=== PATIENT | male | born 1950 | race Caucasian/White ===

== ENCOUNTER 2021-01-24 07:45 | Day surgery (SDC) | payer MEDICARE, OTHER ==
--- NOTE | 2021-01-19 10:28 | NUR ---
phone call to patient discussed medications with pt and what to take the morning of surgery. No water or food after midnight
[~2021-01-24] VITALS: Ht 188 cm; Wt 119.0 kg
[~2021-01-24 07:45] MED LIST: ACTOS15 MG PO; ALDACTONE25 MG PO; CELECOXIB400 MG PO; CHLORTHALIDONE25 MG PO; COZAAR100 MG PO; GLUCOSAMINE-CH480 ML PO; METFORMIN HCL500 M3 PO; MULTI VITAMIN1 EACH PO; OXYBUTYNIN CHLO10 MG PO; SIMVASTATIN40 MG PO; TROSPIUM CHLORI60 MG PO; VERAPAMIL ER240 MG PO; VITAMIN D31000 UNI1 PO
--- NOTE | 2021-01-24 11:53 | NUR ---
01/24/21 1153 Franki Florian OPA IN PL[address] ON ENTRY TO PACU. CBG 116. [employer] AWARE. REPORT RECIEVED.
--- NOTE | 2021-01-24 12:48 | NUR ---
New admit to medical floor. Patient arrived to unit alert and oriented x4. Vital signs are stable, afebrile. Patient reports 1/10 penile tip pain. CBI running, moore patent, light pink urine noted in moore bag. Patient provided with water. Oriented pt to room and call light. No current needs. Personal supplies and call light within reach.
--- NOTE | 2021-01-24 14:20 | NUR ---
Patient reports he is doing well, no distress. Patient provided with a snack. Patient reports pain is tolerable, denies nausea. CBI running, pink urine with no blood clots noted. No current needs. Vital signs stable, sp02 93% on room air.
[2021-01-24] MEDS ORDERED: OXYCODONE HCL5 MG PO (14:57)
[2021-01-24] MEDS ORDERED: KEFLEX750 MG PO (14:58)
--- NOTE | 2021-01-24 15:29 | NUR ---
Patient resting in bed visiting wtih his sister. Patient has no distress. CBI running, moore patent, pink urine without clots noted. Patient reports pain is tolerable. Vital signs are stable. No needs at this time.
--- NOTE | 2021-01-24 18:03 | NUR ---
Patient is in bed with call light in reach.
--- NOTE | 2021-01-24 18:21 | NUR ---
MED REC COMPLETE
--- NOTE | 2021-01-24 19:20 | NUR ---
RECEIVED REPORT FROM DAY SHIFT RN. PATIENT IS RESTIN GIN BED. CBI IS GOING. PATIENT DENIES ANY NEEDS. CALL LIGHT IN REACH.
--- NOTE | 2021-01-24 21:33 | NUR ---
PATIENT ASSESMENT COMPLETED. VITALS TAKEN AND RECORDED. INTAKE AND OUTPUT RECORDED. PATIENT DENIES ANY PAIN. CONDON EMPTIED AND CONDON CARE COMPLETED. BS CHECK. PATIENT REFUSED 1 UNIT SS. PATIENT EDUCATED ON IMPORTANCE OF INSULIN. PATIENT VERBALIZES UNDERSTANDING AND CONTINUES TO REFUSE. SCD IN USE. IV INFUSING PER ORDER. PATIENT DENIES ANY FURTHER NEEDS. CALL LIGHT IN REACH. ICE ATER REFILLED.
--- NOTE | 2021-01-24 22:26 | NUR ---
PATIENT PROVIDED THINGS FOR ORAL CARE AND DID HIMSELF. NO OTHER NEEDS AT THIS TIME.
--- NOTE | 2021-01-24 23:10 | NUR ---
PATIENTS BEDDING CHANGE PATIENT HAD DRAINAGE FROM CATHETER INSERTION SITE. PATIENT DENIES ANY PAIN. PATIENT DENIES ANY NEEDS. CONDON EMPTIED. CALL LIGHT IN REACH.
--- NOTE | 2021-01-25 00:49 | NUR ---
CBI TITRATED TO A SLOW DRIP. PATIENT IS RESTING IN BED. IV INFUSING PER ORDER. PATIENT PROVIDED WITH SNACK. NO FURTHER NEEDS NOTED. CALL LIGHT IN REACH.
--- NOTE | 2021-01-25 02:57 | NUR ---
PATIENT REPOSITIONED IN BED. PATIENTS CBI TITRATED DOWN. PATIENTS VITALS TAKEN AND RECORDED. CONDON EMPTIED. PATIENTS INTAKE AND OUTPUT RECORDED. PATIENT DENIES ANY PAIN. PATIENT DENIES ANY NEEDS. CALL LIGHT IN REACH.
--- NOTE | 2021-01-25 03:50 | NUR ---
PATIENT ASSISTED TO REPOSITION IN BED. PATIENTS CBI CLAMPED. PATIENT DENIES ANY NEEDS. CALL LIGHT IN REACH.
--- NOTE | 2021-01-25 05:50 | NUR ---
PATIENTS VITALS TAKEN AND RECORDED. INTAKE AND OUTPUT RECORDED. PATIENTS CONDON EMPTIED AND CONDON CARE COMPLETED. PATIENT DENIES ANY PAIN. PATIENTS IV INFUSING PER ORDER. PATIENT HAS SCDS IN USE. PATIENT DENIES ANY NEEDS. CALL LIGHT IN REACH. CBI REMAINS CLAMPED.
--- NOTE | 2021-01-25 07:31 | NUR ---
Patient in bed sleeping, eyes closed, respirations even and non labored. Patient has no distress, CBI is clamped, pink urine noted without clots. Personal supplies and call light within reach.
--- NOTE | 2021-01-25 09:05 | EKG ---
[facility] [address] [facility] [place] [address] Signed Sinus rhythm with 1st degree AV block Left ventricular hypertrophy with repolarization abnormality Abnormal ECG When compared with ECG of 06-SEP-2020 14:31, premature ventricular complexes are no longer present Confirmed by DARLENE DILLON MD ([id number]) on 01/25/2021 9:04:50 AM Electronically Signed By: DARLENE DILLON MD 01/25/21 0905 PATIENT NAME: DARIANSERGEHUBER MARCH Electrocardiogram DATE OF : 46 PHYSICIAN: DARLENE DILLON MD REPORT #: [id number] REPORT IS CONFIDENTIAL AND NOT TO BE RELEASED WITHOUT AUTHORIZATION
--- NOTE | 2021-01-25 09:26 | NUR ---
PATIENT SITTING UP IN BED WATCHING TV. VITALS AND I&O'S CHARTED. CALL LIGHT IN REACH. NO FURTHER NEEDS AT THIS TIME.
--- NOTE | 2021-01-25 10:13 | NUR ---
CONDON CBI LINE PLUGGED. RIGHT HAND IV REMOVED WITH CATHETER TIP INTACT. REVIEWED WITH PATIENT PROCEDURE FOR EMPTYING CONDON AND KEEPING BAG LOW FOR GRAVITY DRAINAGE.
--- NOTE | 2021-01-25 10:56 | NUR ---
This RN verified via phone with Dr. Loomis that pt is ok to discharge home.
--- NOTE | 2021-01-25 11:00 | NUR ---
patient discharged home at this time.
--- NOTE | 2021-01-25 11:46 | PATH ---
[facility] [address] [place], [place] [address] Signed SPECIMEN(S): A PROSTATE CHIPS SPECIMEN SOURCE: A. PROSTATE CHIPS CLINICAL HISTORY: BPH with LUTS; OAB; microhematuria. Transurethral resection of prostate. FINAL PATHOLOGIC DIAGNOSIS: Prostate, transurethral resection: - Benign prostatic tissue with glandular and stromal hyperplasia and nonspecific granulomatous prostatitis. BRP:caw:C2NR MICROSCOPIC EXAMINATION: Histologic sections of all submitted blocks are examined by light microscopy. These findings, together with the gross examination, support the pathologic diagnosis. GROSS DESCRIPTION: The specimen, labeled "RC," and designated on the requisition "prostate chips," is received in formalin and consists of pulido-pink, rubbery tissue fragments measuring 8.2 x 7.0 x 1.4 cm in aggregate and weighing 12.5 grams. Diver'S Tender sections are submitted in cassettes (A1-A8). AT (under the direct supervision of a pathologist) The Gross Description was prepared using a voice recognition system. The report was reviewed for accuracy; however, sound-alike word errors, addition and/or deletions may occur. If there is any question about this report, please contact Client Services. PERFORMING LABORATORY: The technical component was performed by [facility], [address] [place] [address] (Leather Craftsman: Kathrine Mirza MD; CLIA# [id number]). [facility], [address] [address] (CLIA# [id number]). Diagnostician: Mike Jade MD Pathologist Electronically Signed 01/25/2021 PATIENT NAME: SERGE FARMER PATHOLOGY DATE OF : 46 REPORT #: [id number] PHYSICIAN: [facility] PCP: TRINY SARKAR MD REPORT IS CONFIDENTIAL AND NOT TO BE RELEASED WITHOUT AUTHORIZATION [address] [address] Signed Copies: ~ PATIENT NAME: SERGE FARMER PATHOLOGY DATE OF : 46 REPORT #: [id number] PHYSICIAN: [facility] PCP: TRINY SARKAR MD REPORT IS CONFIDENTIAL AND NOT TO BE RELEASED WITHOUT AUTHORIZATION
--- NOTE | 2021-01-26 19:01 | OR ---
[facility] [address] [place], [place] [address] Signed DATE OF OPERATION: 01/24/2021 SURGEON: Ashanti Negrete MD PREOPERATIVE DIAGNOSES: 1. Urinary urgency and frequency. 2. Trilobar benign prostatic hyperplasia with lower urinary tract symptoms. POSTOPERATIVE DIAGNOSES: 1. Urinary urgency and frequency. 2. Trilobar benign prostatic hyperplasia with lower urinary tract symptoms. NAME OF PROCEDURE: Transurethral resection of the prostate. ANESTHESIA: General. ESTIMATED BLOOD LOSS: 5 mL. COMPLICATIONS: None. SPECIMENS: Prostate chips sent to the lab for pathologic evaluation. DRAINS: A 22-Liberian 3-way Chery catheter, connected to continuous bladder irrigation. INDICATIONS FOR PROCEDURE: Mr. Muhammad is a very pleasant 70-year-old gentleman, who recently presented to me with fairly significant lower urinary tract symptoms. In particular, he experiences urinary urgency, frequency, and urge incontinence symptoms for which he takes trospium chloride daily. On top of this, he does experience a weak force of stream for which he recently underwent diagnostic cystoscopy, which revealed [id number] trilobar prostatic hyperplasia. In particular, he had a very large median lobe that appeared to be ball valving over the bladder neck during micturition. After discussion of the risks and benefits of the procedure, the patient has elected to undergo transurethral resection of the prostate. Electronically Signed By: ASHANTI NEGRETE MD 01/26/21 190 PATIENT NAME: SERGE MUHAMMAD OPERATIVE REPORT DATE OF : 46 REPORT #: [id number] PHYSICIAN: ASHANTI NEGRETE MD PCP: TRINY SARKAR MD REPORT IS CONFIDENTIAL AND NOT TO BE RELEASED WITHOUT AUTHORIZATION [facility] [address] [place], [place] [address] Signed OPERATIVE FINDINGS: 1. Digital rectal examination reveals a 45 g prostate that is soft, smooth, and symmetric with no focal nodules. 2. Diagnostic cystoscopy reveals no evidence of bladder masses, lesions, or stones. Bilateral ureteral orifices are in their normal anatomic location and effluxing clear urine. Initially, I am barely able to see the ureteral orifices due to the shear size of the patient's median lobe. However, after resection of the median lobe, I am able to easily appreciate both ureteral orifices. 3. Urethroscopy reveals oabvnhnh-xb-nhgwsa trilobar prostatic hyperplasia. The patient has a very large median lobe along with a moderate-size lateral lobe hypertrophy. There is approximately 2 cm from bladder neck to verumontanum. 4. The patient's prostate was resected in a stepwise fashion using a 24-Liberian loop with bipolar electrocautery. The large median lobe was resected first followed by the left and then right lateral lobes of the prostate. The resection was taken down to the level of the verumontanum to avoid any damage to the external sphincter. 5. At the end of procedure, a 22-Liberian 3-way Chery catheter was inserted into the patient's bladder and connected to continuous bladder irrigation. DESCRIPTION OF PROCEDURE: After informed consent was obtained, the patient was taken back to the operating room. [facility] table where general anesthesia was induced. He was placed in the dorsal lithotomy position and his genitalia were prepped and draped in a standard sterile fashion. A digital rectal examination was performed. Please see above findings. The patient's urethral meatus was dilated from 16-Liberian to 30-Liberian using Fillmore sounds without difficulty. I then inserted a 26-Liberian sheath using a visual obturator. Diagnostic cystoscopy was then performed. Please see above findings. The visual obturator was then switched out for the resectoscope and I began my resection of the very large median lobe of the prostate. All the while, I kept a good eye on the bilateral ureteral orifices to be sure there was no iatrogenic damage to them during the resection. Once the middle lobe was taken down, I then turned my attention to both the left and then right lobes of the prostate. As stated above, the resection was taken down to the level of the verumontanum. Once I was satisfied with the amount of prostate chips removed from the patient's prostatic urethra, I switched from a bipolar loop to a bipolar button. I continued resection and cleaned up the tissue using the bipolar button. The button was also used for hemostasis. There was not a significant amount of bleeding during the procedure. Once I was satisfied that hemostasis had been achieved and maintained, the patient's bladder was irrigated using a Ilene syringe multiple times to be sure all the prostate chips had been extracted from the patient's bladder. The resectoscope was removed, leaving the sheath behind. Through the sheath, I passed a 0.035 Sensor wire into the patient's bladder. The sheath was then removed fully intact. Over the sheath, I passed a Electronically Signed By: ASHANTI NEGRETE MD 01/26/21 6044 PATIENT NAME: SERGE MUHAMMAD OPERATIVE REPORT DATE OF : 46 REPORT #: [id number] PHYSICIAN: ASHANTI NEGRETE MD PCP: TRINY SARKAR MD REPORT IS CONFIDENTIAL AND NOT TO BE RELEASED WITHOUT AUTHORIZATION [address] [address] Signed 22-Liberian 3-way Chery catheter into the patient's bladder. The Chery catheter passed easily into the patient's bladder and the Sensor wire was removed. The Chery catheter balloon was then filled with 30 mL of water. The catheter was then manually irrigated to ensure proper positioning. The catheter irrigated without difficulty. The procedure was then terminated once the patient was connected to continuous bladder irrigation. The patient tolerated the procedure well without any complications. He will now be transferred to the postanesthesia care unit in stable condition. DISPOSITION: I discussed the details of today's procedure with the patient's sister Janene and answered all of her questions. He will be admitted to med/surg [facility] under extended observation, so that his continuous bladder irrigation can be slowly weaned off. He will receive pain control and antiemetics as needed along with a diabetic diet. He will receive 1 more dose of IV antibiotics in the morning before he goes home, hopefully with this catheter to gravity drainage. He has been scheduled to return to clinic this January 27 to undergo a voiding trial. MD FINN Chavez/CHERISE /[id number] Copies: ~ Electronically Signed By: ASHANTI NEGRETE MD 01/26/21 1901 PATIENT NAME: SERGE MUHAMMAD OPERATIVE REPORT DATE OF : 46 REPORT #: [id number] PHYSICIAN: ASHANTI NEGRETE MD PCP: TRINY SARKAR MD REPORT IS CONFIDENTIAL AND NOT TO BE RELEASED WITHOUT AUTHORIZATION
== END 2021-01-25 10:55 | disposition home or self-care (01) ==
LOC: DS 07:45 → MS 12:35 → DS 01-25 10:55
PROVIDERS: ATTEND Urology
PROC: 0VT08ZZ Resection of Prostate, Via Natural or Artificial Opening Endoscopic (ICD-10-PCS; principal; 2021-01-24 09:00)
DX: N40.1 Benign prostatic hyperplasia with lower urinary tract symptoms (principal); R39.15 Urgency of urination; R35.0 Frequency of micturition; N39.41 Urge incontinence; E11.9 Type 2 diabetes mellitus without complications; E23.0 Hypopituitarism; I10 Essential (primary) hypertension; E78.5 Hyperlipidemia, unspecified; M19.90 Unspecified osteoarthritis, unspecified site; Z87.891 Personal history of nicotine dependence; Z79.84 Long term (current) use of oral hypoglycemic drugs; Z88.8 Allergy status to other drugs, medicaments and biological substances
CPT/HCPCS: 00914; 93005; 93010; C1769; J0690; J0696; J1100; J1815; J1885; J2250; J2405; J2704; J2765; J3010; J7030; J7121

== ENCOUNTER 2021-06-27 11:44 | Day surgery (SDC) | payer MEDICARE, OTHER ==
[~2021-06-27] VITALS: Ht 188 cm; Wt 119.5 kg
--- NOTE | ~2021-06-27 | OR ---
[facility] [address] [place], [place] [address] Draft DATE OF OPERATION: 06/27/2021 SURGEON: Say Gonzalez MD PREOPERATIVE DIAGNOSIS: History of multiple polyps, last colonoscopy 2015. POSTOPERATIVE DIAGNOSES: 1. Mucosal thickening at hepatic flexure, uncertainty as to adenomatous change or hyperplasia. 2. Internal hemorrhoids. PROCEDURE: Total colonoscopy to cecum with biopsy at hepatic flexure. ANESTHESIA: Intravenous sedation; fentanyl 150 mcg and Versed 6 mg. INDICATION: A 70-year-old white man is a patient Dr. Triny Gleason. He has history of polyps, having undergone colonoscopy last in [address] Honorio Msaon. He has no symptoms currently. He is admitted to undergo colonoscopy. He understands the risks of bleeding, infection, and perforation. FINDINGS: The prep was excellent. Complete colonoscopy was undertaken to the cecum without question. Good visualization of appendiceal orifice was noted. There was an area of mucosal thickening at the hepatic flexure, which was uncertain as to its underlying pathology and on that basis biopsies were obtained. It was not a distinct polyp that I could tell. The remaining colon was normal except on retroflexed view, some internal hemorrhoidal changes were noted. PROCEDURE: The patient was brought to the endoscopy suite and placed in lateral decubitus position, given intravenous sedation to the point of slurred speech and nystagmus. Digital rectal examination was normal. An Olympus video colonoscope was passed in the rectum and manipulated throughout the colon ultimately to the hepatic flexure. Passage beyond here was slightly challenging requiring abdominal wall stabilization, but ultimately the scope was passed beyond this PATIENT NAME: SERGE FARMER OPERATIVE REPORT DATE OF : 46 REPORT #: [id number] PHYSICIAN: SAY GONZALEZ MD PCP: TRINY GLEASON MD REPORT IS CONFIDENTIAL AND NOT TO BE RELEASED WITHOUT AUTHORIZATION [facility] [address] [place], [place] [address] Draft ultimately to the cecum itself. The ileocecal valve and appendiceal orifice were clearly identified as the cecum was completely intubated. Irrigation was undertaken. The scope was carefully withdrawn. At the hepatic flexure, there was an area of mucosal thickening which was of uncertain etiology. Narrow band imaging was no better at discerning it. On that basis, biopsies were obtained. It did not appear to be a typical polyp but may have adenomatous change, it is uncertain. Once biopsies were complete, the scope was carefully withdrawn more fully. Examination showed no other abnormality. Retroflexed view of the rectum showed some internal hemorrhoidal change with no sign of acute bleeding or other problem related to it. The scope was removed and the patient was taken to the recovery room in good condition. CONCLUDING DIAGNOSES: 1. Questionable mucosal abnormality, hepatic flexure (biopsied). 2. Internal hemorrhoids. PLAN: Recommend repeat colonoscopy in 5 years, sooner if symptoms should warrant or the biopsy of the hepatic flexure should show adenomatous change. MD VIRI Moya/CHERISE /[id number] cc: Triny Gleason MD Copies: TRINY GLEASON DMD ~ PATIENT NAME: SERGE FARMER GRETELERNA OPERATIVE REPORT DATE OF : 46 REPORT #: [id number] PHYSICIAN: SAY GONZALEZ MD PCP: TRINY GLEASON MD REPORT IS CONFIDENTIAL AND NOT TO BE RELEASED WITHOUT AUTHORIZATION
[~2021-06-27 11:44] MED LIST changes: +KEFLEX750 MG PO; +OXYCODONE HCL5 MG PO
--- NOTE | 2021-06-27 14:07 | NUR ---
06/27/21 1407 Torie Shook 1400-PT TO PACU IN LL POSITION. EYES CLOSED. RESPONDS TO VERBAL STIMULI. DENIES PAIN AND NAUSEA AND FALLS QUICKLY BACK TO SLEEP. BREATHING EASY AND UNLABORED. SPO2 >95% ON 3L O2 VIA NC. PT ENCOURAGED TO PASS GAS. 1407-PT SLEEPING WITHOUT RN STIMULI. AWAKENS EASILY TO VOICE. PT BREATHING EASY AND UNLABORED. SPO2 >95% ON 3 L O2 VIA SIMPLE MASK. PT PASSING GAS.
--- NOTE | 2021-06-29 11:57 | PATH ---
[facility] [address] [facility] [place] [address] Signed SPECIMEN(S): A HEPATIC FLEXURE BIOPSY POSS POLYP SPECIMEN SOURCE: A. HEPATIC FLEXURE BIOPSY POSS POLYP CLINICAL HISTORY: Colonoscopy. History of colon polyps 2016. Post: Mucosal abnormality hepatic flexure, internal hemorrhoids. FINAL PATHOLOGIC DIAGNOSIS: Colon, hepatic flexure, polyp, polypectomy: - Focal mild active colitis. - Negative for dysplasia or malignancy. COMMENT: Focal cryptitis is seen, but no basal lymphoplasmacystosis, architectural distortion, or granulomas. The differential diagnosis includes bowel preparation, infectious etiologies, or NSAID-induced damage. NAL:cml:C2NR MICROSCOPIC EXAMINATION: Histologic sections of all submitted blocks are examined by light microscopy. These findings, together with the gross examination, support the pathologic diagnosis. GROSS DESCRIPTION: The specimen, labeled "RC, hepatic flexure polyp," is received in formalin and consists of one pulido soft tissue fragment that measures 0.3 cm in greatest dimension. The specimen is entirely submitted in cassette (A1). JS (under the direct supervision of a pathologist) The Gross Description was prepared using a voice recognition system. The report was reviewed for accuracy; however, sound-alike word errors, addition and/or deletions may occur. If there is any question about this report, please contact Client Services. PERFORMING LABORATORY: The technical component was performed by [facility], [address] [place] [id number] (CLIA# [id number]). Professional interpretation was performed by [facility] [place] PATIENT NAME: SERGE FARMER PATHOLOGY DATE OF : 46 REPORT #: [id number] PHYSICIAN: [facility] PCP: TRINY SARKAR MD REPORT IS CONFIDENTIAL AND NOT TO BE RELEASED WITHOUT AUTHORIZATION [facility] [address] [place], [place] [address] [address] (CLIA# [id number]). Diagnostician: Halima Butler MD Pathologist Electronically Signed 06/29/2021 Copies: ~ PATIENT NAME: SERGE FARMER PATHOLOGY DATE OF : 46 REPORT #: [id number] PHYSICIAN: [facility] PCP: TRINY SARKAR MD REPORT IS CONFIDENTIAL AND NOT TO BE RELEASED WITHOUT AUTHORIZATION
== END 2021-06-27 15:00 | disposition home or self-care (01) ==
LOC: DS 11:44 → OPS 11:44 → DS 13:00 → OPS 13:00
PROVIDERS: ATTEND Surgery
PROC: 0DBL8ZX Excision of Transverse Colon, Via Natural or Artificial Opening Endoscopic, Diagnostic (ICD-10-PCS; principal; 2021-06-27 13:00)
DX: Z12.11 Encounter for screening for malignant neoplasm of colon (principal); K52.89 Other specified noninfective gastroenteritis and colitis; K64.8 Other hemorrhoids; N40.1 Benign prostatic hyperplasia with lower urinary tract symptoms; N13.8 Other obstructive and reflux uropathy; E78.5 Hyperlipidemia, unspecified; I10 Essential (primary) hypertension; E66.9 Obesity, unspecified; Z86.16 Personal history of COVID-19; Z90.49 Acquired absence of other specified parts of digestive tract; Z68.34 Body mass index [BMI] 34.0-34.9, adult; Z88.8 Allergy status to other drugs, medicaments and biological substances; Z86.010 Personal history of colon polyps
CPT/HCPCS: 99153; G0500; J2250; J3010; J7121

== ENCOUNTER 2021-11-14 06:47 | Day surgery (SDC) | payer MEDICARE, OTHER ==
[~2021-11-14] VITALS: Ht 188 cm; Wt 108.2 kg
[~2021-11-14 06:47] MED LIST changes: +BIOTIN1000 MCG PO; +GLYCOTROL CAPS1 EACH PO; +OSTERA TABLET1 EACH PO; +VIT C-ROSE HIP500 MG PO
[2021-11-14] MEDS ORDERED: CO Q-1050 MG PO (07:26)
--- NOTE | 2021-11-14 10:35 | NUR ---
11/14/21 1035 Dayna Pollard 1024- PT ARRIVES TO PACU REACTIVE TO VERBAL STIMULI. PT DOES NOT FOLLOW COMMANDS OR ANSWER QUESTIONS. OPENS EYES TO STIMULI. PT INSTANTLY FALLS BACK TO SLEEP WHEN NOT BEING STIMULATED. RESP EVEN AND UNLABORED. OXYGEN SAT HIGH 90'S ON 6L VIA MASK. 1027- CBG 89. GRAINING OPERATOR AWARE. 1034- PT AROUSABLE TO VOICE. PT ABLE TO ANSWER QUESTIONS AND FOLLOW COMMANDS NOW. PT ENCOURAGED TO COUGH AND DEEP BREATHE. PT IS ABLE TO DO THIS. PT UPDATED THAT HIS SURGERY IS OVER.
--- NOTE | 2021-11-14 11:00 | NUR ---
WATER GIVEN. CALL LIGHT WITHIN REACH. PATIENT REPORTS HE WILL CALL FOR HIS RIDE.
--- NOTE | 2021-11-14 12:05 | NUR ---
PATIENT IS UP TO THE BATHROOM, WITH MY STANDBY. HE AMBULATES WELL AND DENIES DIZZINESS. HE REPORTS "THAT HURT, SO I DIDN'T PEE." PATIENT EDUCATED ON NEED TO VOID PRIOR TO DISCHARGE AND HE VERBALIZES UNDERSTANDING. HE IS SITTING ON THE EDGE OF THE BED, DRINKING WATER. CALL LIGHT IS WITHIN REACH.
--- NOTE | 2021-11-15 14:42 | OR ---
[facility] [address], [place] [address] Signed DATE OF OPERATION: 11/14/2021 SURGEON: Ashanti Negrete MD PREOPERATIVE DIAGNOSIS: Overactive bladder. POSTOPERATIVE DIAGNOSIS: Overactive bladder. NAMES OF PROCEDURES: 1. Diagnostic cystoscopy. 2. Intravesical injection of Botox, 100 units. ANESTHESIA: MAC. ESTIMATED BLOOD LOSS: None. COMPLICATIONS: None. SPECIMENS: None. DRAINS: None. INDICATIONS FOR PROCEDURE: Mr. Muhammad is a very pleasant 71-year-old gentleman who has well known overactive bladder. His symptoms have not responded to prior oral medications. He has undergone evaluation and does not have any evidence of active bladder outlet obstruction. After discussion of the risks and benefits of procedure, the patient has elected to undergo cystoscopy with intravesical injection of Botox 100 units. OPERATIVE FINDINGS: 1. On cystoscopy, there was no evidence of any suspicious masses, lesions, or stones. Bilateral ureteral orifices are in their normal anatomic location effluxing clear urine. 2. A total of 100 mL of botulinum toxin was injected into the detrusor muscle within the Electronically Signed By: ASHANTI NEGRETE MD 11/15/21 1442 PATIENT NAME: SERGE MUHAMMAD OPERATIVE REPORT DATE OF : 46 REPORT #: [id number] PHYSICIAN: ASHANTI NEGRETE MD PCP: TRINY SARKAR MD REPORT IS CONFIDENTIAL AND NOT TO BE RELEASED WITHOUT AUTHORIZATION [facility] [address], [place] [address] Signed bladder via 0.5 aliquots with a total of 20 injections. An additional three injections of 0.5 mL of sterile saline was also performed in order to use all of the Botox present within the injection needle. DESCRIPTION OF PROCEDURE: After informed consent was obtained, the patient was taken back to the operating room. He was transferred from the [facility] to the operating room table, where MAC anesthesia was induced. He was then placed in dorsal lithotomy position and his genitalia prepped and draped in standard sterile fashion. Using a 30-degree lens on a 21-Cameroonian introducer, rigid cystoscope was inserted through his urethra into his bladder under direct visualization. Panendoscopic images of the bladder were then obtained, please see above finding. I did not see any evidence of any abnormality in the entire bladder wall. He also has no obvious evidence of obstruction at the level of the prostatic urethra. A Hitmeister needle was then advanced through the scope and into the patient's bladder. The needle itself was protracted to 3 mm. The needle was prepped using sterile saline. Then a total of 20, 0.5 mL injections were placed within the bladder, mostly throughout the posterior and lateral suazo of the bladder. I avoided the trigone and ureteral orifice area as well as the dome of the bladder. Once the initial 20 injections were complete, we injected a total of 1.5 mL of sterile saline to be sure the Botox was completely utilized. There was minimal bleeding associated with the injection. Once the injection was complete, I retracted the needle and removed the entire needle from the bladder. The patient's bladder was then drained and the cystoscope was removed. The procedure was then terminated. The patient tolerated the procedure well without any complication. He will now be transferred to the postanesthesia care unit in stable condition. DISPOSITION: I discussed the results of today's procedure with the patient, himself, and answered all of his questions. He will be scheduled to see my nurse in 2-3 weeks for a postvoid residual and urine check. He has been scheduled to see me in early February 2022 for routine post Botox followup. He will be sent home today with Cipro 250 mg p.o. b.i.d. for a total of 5 days. Ashanti Negrete MD AR/MODL /[id number] Electronically Signed By: ASHANTI NEGRETE MD 11/15/21 144 PATIENT NAME: SERGE MUHAMMAD OPERATIVE REPORT DATE OF : 46 REPORT #: [id number] PHYSICIAN: ASHANTI NEGRETE MD PCP: TRINY SARKAR MD REPORT IS CONFIDENTIAL AND NOT TO BE RELEASED WITHOUT AUTHORIZATION [facility] [address] [place] [id number] Signed Copies: ~ Electronically Signed By: ASHANTI NEGRETE MD 11/15/211441 PATIENT NAME: SERGE MUHAMMAD OPERATIVE REPORT DATE OF : 46 REPORT #: [id number] PHYSICIAN: ASHANTI NEGRETE MD PCP: TRINY SARKAR MD REPORT IS CONFIDENTIAL AND NOT TO BE RELEASED WITHOUT AUTHORIZATION
== END 2021-11-14 12:30 | disposition home or self-care (01) ==
LOC: DS 06:47
PROVIDERS: ATTEND Urology
PROC: 3E0K8GC Introduction of Other Therapeutic Substance into Genitourinary Tract, Via Natural or Artificial Opening Endoscopic (ICD-10-PCS; principal; 2021-11-14 09:20)
DX: N32.81 Overactive bladder (principal); E11.9 Type 2 diabetes mellitus without complications; N40.1 Benign prostatic hyperplasia with lower urinary tract symptoms; N13.8 Other obstructive and reflux uropathy; I10 Essential (primary) hypertension; Z87.891 Personal history of nicotine dependence; Z79.85 Long-term (current) use of injectable non-insulin antidiabetic drugs
CPT/HCPCS: J0131; J0585; J0690; J1100; J2001; J2405; J2704; J3010